=== PATIENT | female | born 1990 | race Two or more races ===

== ENCOUNTER 2020-05-26 16:06 | Observation (INO) | payer OTHER | END 2020-05-26 16:55 | disposition home or self-care (01) | LOC: 4S 16:06 | PROVIDERS: ADMIT Obstetrics & Gynecology; ATTEND Obstetrics & Gynecology | DX: Z03.818 Encounter for observation for suspected exposure to other biological agents ruled out (principal); Z3A.38 38 weeks gestation of pregnancy | CPT/HCPCS: 87635; G0378 ==

== ENCOUNTER 2020-05-28 21:10 | Observation (INO) | payer OTHER ==
[~2020-05-28] VITALS: Ht 175.3 cm; Wt 76.2 kg
[2020-05-28] MEDS ORDERED: OXYTOCIN 30 UNITS/LACT RINGERS 500 ML IV ONE (21:27)
[2020-05-28] MEDS ORDERED: RINGERS SOLUTION,LACTATED 1,000 ML IV PRN (21:27)
[2020-05-28] MEDS ORDERED: FentaNYL CITRATE-PF 100 MCG/2 ML VIAL IVP PRN (21:30)
[2020-05-28] MEDS ORDERED: CITRIC ACID/SODIUM CITRATE 30 ML SOLUTION UDCUP PO PRN (21:30)
[2020-05-28] MEDS ORDERED: METOCLOPRAMIDE HCL 5 MG/ML 2 ML VIAL IVP PRN (21:30)
[2020-05-28 22:27] LABS: BASOPHILS % (AUTO) 0.4 % (0.0-2.0); EOSINOPHILS % (AUTO) 0.2 % (1.0-6.0); HEMATOCRIT 30.5 % (36-46); HEMOGLOBIN 10.1 g/dL (12.0-16.0); LYMPHOCYTES # (AUTO) 1.4 K/uL (1.0-4.8); LYMPHOCYTES % (AUTO) 13.1 % (22.0-44.0); MEAN CORPUSCULAR HEMOGLOBIN 29.8 pg (26.0-34.0); MEAN CORPUSCULAR HGB CONC 33.2 G/dL (31.0-37.0); MEAN CORPUSCULAR VOLUME 90 fL (80-100); MONOCYTES # (AUTO) 0.7 K/uL (0.1-1.0); MONOCYTES % (AUTO) 6.3 % (2.0-9.0); NEUTROPHILS # (AUTO) 8.4 K/uL (1.8-7.7); PLATELET COUNT (AUTO) 366 K/uL (150-450); RED CELL DISTRIBUTION WIDTH 12.6 % (11.5-14.5)
[2020-05-28] MEDS ORDERED: folic acid PO (22:38)
[2020-05-28] MEDS ORDERED: PREN-217 PO (22:38)
[2020-05-28 22:41] VITALS: BP 109/66
[2020-05-28] MEDS ORDERED: DINOPROSTONE 10 MG VAGINAL SUPPOSITORY VG ONE (22:45)
[2020-05-28] MEDS: RINGERS SOLUTION,LACTATED 1,000 ML IV SCH (23:00)
[2020-05-29] MEDS ORDERED: MINERAL OIL 30 ML UDCUP VG ONE
[2020-05-29] MEDS: RINGERS SOLUTION,LACTATED 1,000 ML IV SCH ×3 (03:36→19:04)
[2020-05-29] MEDS ORDERED: OXYTOCIN 30 UNITS/LACT RINGERS 500 ML IV ONE (07:42)
[2020-05-29] MEDS ORDERED: METHYLERGONOVINE MALEATE 0.2 MG/ML VIAL IM PRN (07:45)
[2020-05-29] MEDS ORDERED: CARBOPROST TROMETHAMINE 250 MCG/ML AMP IM PRN (07:45)
[2020-05-29] MEDS ORDERED: OXYGEN THERAPY IH SCH (08:00)
[2020-05-29] MEDS ORDERED: -PHARMACY NOTE- MISC ONE (10:45)
[2020-05-29] MEDS ORDERED: MISOPROSTOL 50 MCG TABLET PO ONE ×3 (11:15→20:15)
[2020-05-29] MEDS ORDERED: FOLI0.4T92 PO (11:17)
[2020-05-29] MEDS ORDERED: BUPIVACAINE HCL/PF 0.25% 10 ML VIAL ONE (20:12)
[2020-05-29] MEDS ORDERED: ROPIVACAINE HCL/PF 0.2% 0 ML ED ONE (20:12)
== END 2020-05-29 20:50 | disposition home or self-care (01) ==
LOC: INTOOBSV 21:10 → OBSVTOIN 21:10 → 4S 21:10
PROVIDERS: ADMIT Obstetrics & Gynecology; ATTEND Obstetrics & Gynecology
DX: O26.893 Other specified pregnancy related conditions, third trimester (principal); Z3A.39 39 weeks gestation of pregnancy
CPT/HCPCS: 36415; 76811; 85025; 86850; 86900; 86901; G0378; J7120; J2795; J3490

== ENCOUNTER 2020-06-04 09:07 | Inpatient (IN) | payer OTHER ==
[~2020-06-04 09:07] MED LIST: FOLI0.4T92 PO; PREN-217 PO
[2020-06-04] MEDS ORDERED: RINGERS SOLUTION,LACTATED 1,000 ML IV SCH (09:31)
[2020-06-04] MEDS ORDERED: OXYTOCIN 30 UNITS/LACT RINGERS 500 ML IV ONE (09:31)
[2020-06-04] MEDS ORDERED: RINGERS SOLUTION,LACTATED 1,000 ML IV PRN (09:31)
[2020-06-04 09:41] VITALS: BP 109/75
[2020-06-04] MEDS ORDERED: METOCLOPRAMIDE HCL 5 MG/ML 2 ML VIAL IVP PRN (09:45)
[2020-06-04] MEDS ORDERED: LIDOCAINE/PF 1% 30 ML VIAL INJ PRN (09:45)
[2020-06-04] MEDS ORDERED: METHYLERGONOVINE MALEATE 0.2 MG/ML VIAL IM PRN (09:45)
[2020-06-04] MEDS ORDERED: CITRIC ACID/SODIUM CITRATE 30 ML SOLUTION UDCUP PO PRN (09:45)
[2020-06-04] MEDS ORDERED: MINERAL OIL 30 ML UDCUP VG ONE (09:45)
[2020-06-04] MEDS ORDERED: DINOPROSTONE 10 MG VAGINAL SUPPOSITORY VG ONE (10:30)
[2020-06-04 10:39] LABS: BASOPHILS % (AUTO) 0.6 % (0.0-2.0); EOSINOPHILS % (AUTO) 0.5 % (1.0-6.0); HEMATOCRIT 28.4 % (36-46); HEMOGLOBIN 9.4 g/dL (12.0-16.0); LYMPHOCYTES # (AUTO) 1.2 K/uL (1.0-4.8); LYMPHOCYTES % (AUTO) 16.5 % (22.0-44.0); MEAN CORPUSCULAR HEMOGLOBIN 29.7 pg (26.0-34.0); MEAN CORPUSCULAR HGB CONC 33.1 G/dL (31.0-37.0); MEAN CORPUSCULAR VOLUME 90 fL (80-100); MONOCYTES # (AUTO) 0.6 K/uL (0.1-1.0); MONOCYTES % (AUTO) 7.6 % (2.0-9.0); NEUTROPHILS # (AUTO) 5.5 K/uL (1.8-7.7); NEUTROPHILS % (AUTO) 74.8 % (40.0-70.0); PLATELET COUNT (AUTO)-OB 329 K/uL (150-450); RED BLOOD CELL COUNT(AUTO) 3.16 MIL/uL (4.00-5.20); RED CELL DISTRIBUTION WIDTH 12.8 % (11.5-14.5)
[2020-06-04] MEDS ORDERED: OXYGEN THERAPY IH SCH (20:00)
[2020-06-04] MEDS ORDERED: -PHARMACY NOTE- MISC ONE (22:15)
[2020-06-05] MEDS ORDERED: OXYTOCIN 30 UNITS/LACT RINGERS 500 ML IV PRN (02:45)
[2020-06-05] MEDS: FentaNYL CITRATE-PF 100 MCG/2 ML VIAL IVP PRN ×2 (05:56→07:33)
[2020-06-05] MEDS ORDERED: ROPIVACAINE HCL/PF 0.2% 100 ML ED ONE (09:05)
[2020-06-05] MEDS ORDERED: MINERAL OIL 30 ML UDCUP ONE (09:12)
[2020-06-05] MEDS ORDERED: ONDANSETRON HCL 4 MG/2 ML VIAL IVP PRN (10:30)
[2020-06-05] MEDS ORDERED: ROPIVACAINE HCL/PF 0.2% 100 ML ED PRN (10:30)
[2020-06-05] MEDS ORDERED: DiphenhydrAMINE HCL 50 MG/ML VIAL IVP PRN (10:30)
[2020-06-05] MEDS ORDERED: OXYTOCIN 30 UNITS/LACT RINGERS 500 ML IV ONE (12:53)
[2020-06-05] MEDS ORDERED: LIDOCAINE/PF 1% 30 ML VIAL INJ PRN (13:00)
[2020-06-05] MEDS ORDERED: BENZOCAINE 20%/MENTHOL 56 GM SPRAY CANISTER TP PRN (13:00)
[2020-06-05] MEDS ORDERED: OxyCODONE HCL/ACETAMINOPHEN 5-325 MG TABLET PO PRN ×2 (13:00)
[2020-06-05] MEDS ORDERED: LANOLIN 7 GM OINTMENT TP PRN (13:00)
[2020-06-05] MEDS ORDERED: IBUPROFEN 800 MG TABLET PO PRN (13:00)
[2020-06-05] MEDS ORDERED: GLYCERIN/WITCH HAZEL LEAF 40 PADS JAR TP PRN (13:00)
[2020-06-05] MEDS: MAGNESIUM HYDROXIDE SUSPENSION 30 ML UDCUP PO PRN (22:13)
[2020-06-06 06:45] LABS: BASOPHILS % (AUTO) 0.5 % (0.0-2.0); EOSINOPHILS % (AUTO) 0.1 % (1.0-6.0); HEMATOCRIT 28.9 % (36-46); HEMOGLOBIN 9.2 g/dL (12.0-16.0); LYMPHOCYTES # (AUTO) 1.8 K/uL (1.0-4.8); LYMPHOCYTES % (AUTO) 13.3 % (22.0-44.0); MEAN CORPUSCULAR HEMOGLOBIN 28.9 pg (26.0-34.0); MEAN CORPUSCULAR HGB CONC 31.9 G/dL (31.0-37.0); MEAN CORPUSCULAR VOLUME 91 fL (80-100); MONOCYTES # (AUTO) 0.9 K/uL (0.1-1.0); MONOCYTES % (AUTO) 6.3 % (2.0-9.0); NEUTROPHILS % (AUTO) 79.8 % (40.0-70.0); PLATELET COUNT (AUTO)-OB 289 K/uL (150-450); RED BLOOD CELL COUNT(AUTO) 3.19 MIL/uL (4.00-5.20)
[2020-06-06] MEDS ORDERED: ACET-784 PO (09:21)
[2020-06-06] MEDS ORDERED: IBUP-2070 PO (09:22)
[2020-06-06] MEDS ORDERED: DOCU-275 PO (09:23)
[2020-06-06] MEDS: MAGNESIUM HYDROXIDE SUSPENSION 30 ML UDCUP PO PRN (13:02)
== END 2020-06-06 15:15 | disposition home or self-care (01) | DRG 807 ==
LOC: 4S 09:07 → PREOBSVTOIN 06-06 09:26
PROVIDERS: ADMIT Obstetrics & Gynecology; ATTEND Obstetrics & Gynecology
PROC: 10E0XZZ Delivery of Products of Conception, External Approach (ICD-10-PCS; principal; 2020-06-05)
PROC: 0KQM0ZZ Repair Perineum Muscle, Open Approach (ICD-10-PCS; 2020-06-05)
PROC: 3E033VJ Introduction of Other Hormone into Peripheral Vein, Percutaneous Approach (ICD-10-PCS; 2020-06-05)
PROC: 3E0R3BZ Introduction of Anesthetic Agent into Spinal Canal, Percutaneous Approach (ICD-10-PCS; 2020-06-05)
PROC: 00HU33Z Insertion of Infusion Device into Spinal Canal, Percutaneous Approach (ICD-10-PCS; 2020-06-05)
DX: O69.81X0 Labor and delivery complicated by cord around neck, without compression, not applicable or unspecified (principal); Z37.0 Single live birth; O70.1 Second degree perineal laceration during delivery; Z3A.40 40 weeks gestation of pregnancy; Z20.828 Contact with and (suspected) exposure to other viral communicable diseases
CPT/HCPCS: 76811; 86850; 86900; 86901; 87081; J2590; J2795; J3010; J7120